=== PATIENT | male | born 1995 | race Caucasian/White ===

== ENCOUNTER 2018-06-22 12:03 | Emergency (ER) | payer OTHER, SELFPAY ==
[2018-06-22 12:09] VITALS: BP 136/72; PULSE 72; RESP 14; TEMP 36.6; O2SAT 100; BMI 22.4
--- NOTE | 2018-06-22 12:17 | DI.RAD.S_ITS ---
PROCEDURE: XR CHEST 2V INDICATIONS: chest pain TECHNIQUE: 2 views of the chest were acquired. COMPARISON: None. FINDINGS: Surgical changes and devices: None. Lungs and pleura: No pleural effusions or pneumothorax. Lungs are clear. Mediastinum: Mediastinal contours are normal. Heart size is normal. Bones and chest wall: No suspicious bony abnormalities. Soft tissues appear unremarkable. IMPRESSION: No acute cardiopulmonary abnormality Dictated by: Jimmy Russo M.D. on 06/22/2018 at 12:42 Approved by: Jimmy Russo M.D. on 06/22/2018 at 12:43
[2018-06-22 13:00] VITALS: BP 126/73; PULSE 57; RESP 15; O2SAT 99
--- NOTE | 2018-06-22 13:00 | ED_ITS ---
HPI - Chest Pain <FRANCESCA Scott - Last Filed: 06/22/18 22:27> General Chief Complaint: Chest Pain Stated Complaint: chest pains Time Seen by Provider: 06/22/18 13:00 History of Present Illness HPI narrative: 22-year-old healthy male here for complaint of having chest pain on and off over the past week. He states that it started when he was sitting down playing a video game when the chest pain started to the left side of the chest. He reports that the chest pain has been intermittent. He denies any stressors or relievers of the pain. Reports that at a few times the chest pain radiated into his left arm. He also reports intermittent mild shortness of breath. He denies any nausea vomiting. No trauma to the area. He denies any strenuous activity. Related Data Home Medications Medication Instructions Recorded Confirmed No Known Home Medications 06/22/18 06/22/18 fluticasone 2 dose INTRANASAL BID PRN 06/22/18 06/22/18 loratadine 10 mg PO DAILY 06/22/18 06/22/18 olopatadine [Patanol] 1 drp EYE-BOTH BID PRN 06/22/18 06/22/18 Allergies Allergy/AdvReac Type Severity Reaction Status Date / Time No Known Drug Allergies Allergy Verified 06/22/18 12:14 Review of Systems <FRANCESCA Scott - Last Filed: 06/22/18 22:27> Constitutional Denies chills, Denies fatigue, Denies fever(s), Denies lethargy and Denies weakness Eyes Denies change in vision, Denies eye discharge, Denies irritation and Denies loss of vision ENT Ears, Nose, Mouth, and Throat: Denies change in voice, Denies neck pain and Denies sore throat Cardiovascular Reports chest pain, Denies dyspnea and Denies dyspnea on exertion Respiratory Denies cough, Denies dyspnea, Denies dyspnea on exertion and Denies wheezing Gastrointestinal Gastrointestinal: Denies abdominal pain, Denies change in bowel habits, Denies diarrhea, Denies nausea and Denies vomiting Genitourinary Denies hematuria, Denies flank pain, Denies urinary incontinence and Denies urinary urgency Musculoskeletal Denies neck pain Integumentary/Breasts Denies pruritus, Denies erythema, Denies rash and Denies wounds Neurologic Denies confusion, Denies loss of vision and Denies weakness Psychiatric Denies anxiety, Denies confusion, Denies depression, Denies homicidal ideation and Denies suicidal ideation Endocrine Denies fatigue and Denies flushing Hematologic/Lymphatic Denies easy bruising Allergic/Immunologic Denies wheezing Exam <FRANCESCA Scott - Last Filed: 06/22/18 22:27> Initial Vital Signs Initial Vital Signs: Vital Signs Temperature 97.9 F 06/22/18 12:09 Pulse Rate 72 06/22/18 12:09 Respiratory Rate 14 06/22/18 12:09 Blood Pressure 136/72 H 06/22/18 12:09 Pulse Oximetry 100 06/22/18 12:09 Const General: cooperative and well developed Nutritional Appearance: well nourished Orientation: alert, awake, oriented x3 and not confused HENMT Mouth: oral mucosae normal and moist mucous membranes Eyes Conjunctivae: conjunctivae normal Sclera: sclerae normal Pupils: PERRL EOM: EOM intact bilaterally Resp Effort & Inspection: normal respiratory effort, able to speak in complete sentences, no respiratory distress and no use of accessory muscles Auscultation: clear to auscultation bilaterally, no rales, no rhonchi and no wheezes Cardio Rate: regular rate Rhythm: regular rhythm Heart Sounds: no click, no gallops, no murmurs and no rubs Pulses: normal peripheral pulses GI Inspection: non-distended Palpation: soft, no hepatosplenomegaly, No guarding, No pulsatile mass and No tender Auscultation: normal bowel sounds Skin General: no rashes or lesions noted, No jaundice and No petechiae Neuro General: alert, oriented x3, gait normal and no focal motor deficits Speech: speech normal <Victor Manuel Saudners MD - Last Filed: 07/06/18 08:14> Initial Vital Signs Initial Vital Signs: Vital Signs Temperature 97.9 F 06/22/18 12:09 Pulse Rate 72 06/22/18 12:09 Respiratory Rate 14 06/22/18 12:09 Blood Pressure 136/72 H 06/22/18 12:09 Pulse Oximetry 100 06/22/18 12:09 Course <FRANCESCA Scott - Last Filed: 06/22/18 22:27> Orders Ordered: ED Orders 06/22/18 12:17 Chest [XR chest 2V] Stat EKG-12 Lead Stat 06/22/18 13:02 Complete Blood Count AUTO DIFF Stat Comprehensive Metabolic Panel Stat Lipase Stat Partial Thromboplastin Time Stat Prothrombin Time INR Stat Troponin & CK Cardiac Panel Stat Vital Signs - 8 hr 06/22/18 14:30 Pulse Rate 55 L Respiratory Rate 15 Blood Pressure [Left Arm] 119/73 Pulse Oximetry 99 <Victor Manuel Saunders MD - Last Filed: 07/06/18 08:14> Orders Ordered: ED Orders 06/22/18 12:17 Chest [XR chest 2V] Stat EKG-12 Lead Stat 06/22/18 13:02 Complete Blood Count AUTO DIFF Stat Comprehensive Metabolic Panel Stat Lipase Stat Partial Thromboplastin Time Stat Prothrombin Time INR Stat Troponin & CK Cardiac Panel Stat Vital Signs - 8 hr 06/22/18 14:30 Pulse Rate 55 L Respiratory Rate 15 Blood Pressure [Left Arm] 119/73 Pulse Oximetry 99 MDM - Chest Pain <FRANCESCA Scott - Last Filed: 06/22/18 22:27> Lab Data Result diagrams: 06/22/18 13:02 06/22/18 13:02 Lab Results 06/22/18 06/22/18 06/22/18 Range/Units 13:02 13:02 13:02 WBC 6.3 (4.5-11.0) X10^3/uL RBC 4.30 L (4.5-5.9) X10^6/uL Hgb 13.4 L (13.5-17.5) g/dL Hct 38.7 L (41-53) % MCV 89.8 (80-100) fL MCH 31.1 (26-34) PG MCHC 34.6 (30-36) % RDW 13.0 (11.6-14.8) % Plt Count 202 (150-400) X10^3/uL Neut % (Auto) 41.4 L (50-75) % Lymph % (Auto) 36.9 (25-40) % [place] % (Auto) 11.5 (3-14) % Eos % (Auto) 9.7 H (2-4) % Baso % (Auto) 0.5 (0-2) % Neut # (Auto) 2600 L (4720-3484) /uL PT 12.6 (10.1-12.7) SECONDS INR 1.2 (0.9-1.3) APTT 29 (26.4-36.2) SECONDS Sodium 141 (137-145) mmol/L Potassium 3.7 (3.4-5.1) mmol/L Chloride 103 (98-107) mmol/L Carbon Dioxide 29 (22-32) mmol/L BUN 18 (9-20) mg/dL Creatinine 1.00 (0.66-1.25) mg/dL Estimated GFR > 60.0 (>60) mL/min BUN/Creatinine Ratio 18.0 (6-22) Glucose 89 (70-100) mg/dL Calcium 9.2 (8.4-10.2) mg/dL Total Bilirubin 0.7 (0.2-1.3) mg/dL AST 31 (17-59) IU/L ALT 30 (21-72) IU/L Alkaline Phosphatase 44 (38-126) U/L Total Creatine Kinase 430 H (55-170) U/L CK-MB (CK-2) 1.13 (<2.37) ng/mL CK-MB (CK-2) Rel Index 0.3 L (1.5-5.0) % Troponin I < 0.012 (0.01-0.034) ng/mL Total Protein 7.2 (6.3-8.2) g/dL Albumin 4.5 (3.5-5.0) g/dL Globulin 2.7 (1.7-4.1) g/dL Albumin/Globulin Ratio 1.7 (1.0-2.8) Lipase 32 (23-300) U/L Imaging Data Chest x-ray: Radiologist's impression: Patient: Erich Chua MR#: [id number] : 1995 Acct:[id number] Age/Sex: 22 / M Date of Service: 06/22/18 Loc: ED Accession Number: [id number] Procedure: XR chest 2V Ordering Provider: Victor Manuel Saunders M.D. PROCEDURE: XR CHEST 2V INDICATIONS: chest pain TECHNIQUE: 2 views of the chest were acquired. COMPARISON: None. FINDINGS: Surgical changes and devices: None. Lungs and pleura: No pleural effusions or pneumothorax. Lungs are clear. Mediastinum: Mediastinal contours are normal. Heart size is normal. Bones and chest wall: No suspicious bony abnormalities. Soft tissues appear unremarkable. IMPRESSION: No acute cardiopulmonary abnormality Dictated by: Jimmy Russo M.D. on 06/22/2018 at 12:42 Approved by: Jimmy Russo M.D. on 06/22/2018 at 12:43 ECG Data Interpretation: EKG so does intermittent junctional rhythm with no P waves visible and narrow QRS is with other periods of normal sinus rhythm with no ST elevation or depression. No other ectopy is seen. Ventricular rate is approximately 60 while in junctional rhythm at approximately 80 while in sinus rhythm QRS duration of 105. QT of 399. No prior EKGs to compare MDM Narrative Medical decision making narrative: CBC and Chem panel were obtained were unremarkable. A troponin was obtained and was negative. Chest x-ray was negative for any acute findings. Discussed case with Dr. Zapata cardiology who looked at EKG and states appears to be a junctional rhythm. He recommends stress test/treadmill outpatient test. He is referred to his primary care provider to follow up tomorrow to refer patient for stress/treadmill test. For any worsening symptoms return to the emergency room. <Victor Manuel Saunders MD - Last Filed: 07/06/18 08:14> Lab Data Lab Results 06/22/18 06/22/18 06/22/18 Range/Units 13:02 13:02 13:02 WBC 6.3 (4.5-11.0) X10^3/uL RBC 4.30 L (4.5-5.9) X10^6/uL Hgb 13.4 L (13.5-17.5) g/dL Hct 38.7 L (41-53) % MCV 89.8 (80-100) fL MCH 31.1 (26-34) PG MCHC 34.6 (30-36) % RDW 13.0 (11.6-14.8) % Plt Count 202 (150-400) X10^3/uL Neut % (Auto) 41.4 L (50-75) % Lymph % (Auto) 36.9 (25-40) % [place] % (Auto) 11.5 (3-14) % Eos % (Auto) 9.7 H (2-4) % Baso % (Auto) 0.5 (0-2) % Neut # (Auto) 2600 L (6567-9952) /uL PT 12.6 (10.1-12.7) SECONDS INR 1.2 (0.9-1.3) APTT 29 (26.4-36.2) SECONDS Sodium 141 (137-145) mmol/L Potassium 3.7 (3.4-5.1) mmol/L Chloride 103 (98-107) mmol/L Carbon Dioxide 29 (22-32) mmol/L BUN 18 (9-20) mg/dL Creatinine 1.00 (0.66-1.25) mg/dL Estimated GFR > 60.0 (>60) mL/min BUN/Creatinine Ratio 18.0 (6-22) Glucose 89 (70-100) mg/dL Calcium 9.2 (8.4-10.2) mg/dL Total Bilirubin 0.7 (0.2-1.3) mg/dL AST 31 (17-59) IU/L ALT 30 (21-72) IU/L Alkaline Phosphatase 44 (38-126) U/L Total Creatine Kinase 430 H (55-170) U/L CK-MB (CK-2) 1.13 (<2.37) ng/mL CK-MB (CK-2) Rel Index 0.3 L (1.5-5.0) % Troponin I < 0.012 (0.01-0.034) ng/mL Total Protein 7.2 (6.3-8.2) g/dL Albumin 4.5 (3.5-5.0) g/dL Globulin 2.7 (1.7-4.1) g/dL Albumin/Globulin Ratio 1.7 (1.0-2.8) Lipase 32 (23-300) U/L Discharge Plan Departure Patient Disposition: Home, Self-Care Clinical Impression: Chest pain Discharge Date/Time: 06/22/18 14:53 Instructions: DI for Chest Pain Activity Restrictions/Additional Instructions: Laboratory results today were unremarkable. Chest x-ray was negative. EKG shows periods of a junctional rhythm intermittent with sinus rhythm. Recommend further evaluation with treadmill/stress test follow up with your primary care provider tomorrow for referral for these tests to occur. Use over the counter Tylenol or Motrin as needed for any discomfort. For any worsening symptoms return to the emergency room. Recommend decreased strenuous activity until cleared by primary care/cardiology. For Prescriptions: No Action olopatadine [Patanol] 0.1 % drops 1 drp EYE-BOTH BID PRN (Reason: allergies) RF: 0 fluticasone 50 mcg/actuation spray,suspension 2 dose Intranasal BID PRN (Reason: allergies) RF: 0 loratadine 10 mg tablet 10 mg PO DAILY RF: 0 No Known Home Medications RF: 0 Referrals: [employer] [facility] [facility] [Provider Group] <Victor Manuel Saunders MD - Last Filed: 07/06/18 08:14> Sign Out Provider Sign Out Attestation: The [employer] SECRETARY functioned independently for the care of this pt, I was available, but not asked to participate in care. I am unable to determine appropriateness of management without personally examining the pt.
[2018-06-22 13:11] LABS: Add Manual Diff / Slide Review NO; Basophils Percent Auto 0.5 % (0-2); Eosinophils Percent Auto 9.7 % (2-4); Hematocrit 38.7 % (41-53); Hemoglobin 13.4 g/dL (13.5-17.5); Lymphocytes Percent Auto 36.9 % (25-40); Mean Corpuscular HGB Conc 34.6 % (30-36); Mean Corpuscular Hemoglobin 31.1 PG (26-34); Mean Corpuscular Volume 89.8 fL (80-100); Monocytes Percent Auto 11.5 % (3-14); Neutrophils Absolute Auto 2600 /uL (3000-5900); Neutrophils Percent Auto 41.4 % (50-75); Platelet Count 202 X10^3/uL (150-400); White Blood Cell Count 6.3 X10^3/uL (4.5-11.0)
[2018-06-22 13:18] LABS: INR 1.2 (0.9-1.3); Prothrombin Time 12.6 SECONDS (10.1-12.7)
[2018-06-22 13:20] LABS: PTT Partial Thromboplastin Tim 29 SECONDS (26.4-36.2)
[2018-06-22 13:26] LABS: Alanine Aminotransferase 30 IU/L (21-72); Albumin 4.5 g/dL (3.5-5.0); Albumin Globulin Ratio 1.7 (1.0-2.8); Alkaline Phosphatase 44 U/L (38-126); Aspartate Aminotransferase 31 IU/L (17-59); Bilirubin Total 0.7 mg/dL (0.2-1.3); Blood Urea Nitrogen 18 mg/dL (9-20); Calcium 9.2 mg/dL (8.4-10.2); Carbon Dioxide 29 mmol/L (22-32); Chloride 103 mmol/L (98-107); Creatine Kinase 430 U/L (55-170); Estimated Glomerular Filt Rate > 60.0 mL/min (>60); Globulin 2.7 g/dL (1.7-4.1); Glucose 89 mg/dL (70-100); HEMOLYSIS < 15 (0-50); Lipase 32 U/L (23-300); Potassium 3.7 mmol/L (3.4-5.1); Sodium 141 mmol/L (137-145); Total Protein 7.2 g/dL (6.3-8.2)
[2018-06-22 13:42] LABS: CKMB % Relative Index 0.3 % (1.5-5.0); Creatine Kinase MB 1.13 ng/mL (<2.37)
[2018-06-22 13:45] LABS: Troponin I < 0.012 ng/mL (0.01-0.034)
[2018-06-22 14:00] VITALS: BP 119/72; PULSE 66; RESP 15; O2SAT 100
[2018-06-22 14:30] VITALS: BP 119/73; PULSE 55; RESP 15; O2SAT 99
== END 2018-06-22 14:53 | disposition home or self-care (01) ==
PROVIDERS: Emergency Provider Nurse Practitioner Family
DX: R07.89 Other chest pain (principal)
CPT/HCPCS: 36591; 71046; 80053; 82550; 82553; 83690; 84484; 85025; 85610; 85730; 93005; 99282; 99285